=== PATIENT | male | born 1975 | race Caucasian/White ===

== ENCOUNTER 2023-10-23 00:11 | Emergency (ER) | payer OTHER | END 2023-10-23 01:26 | disposition home or self-care (01) | LOC: LL.ED 00:11 | DX: S62.307A Unspecified fracture of fifth metacarpal bone, left hand, initial encounter for closed fracture (principal); F17.210 Nicotine dependence, cigarettes, uncomplicated; J44.9 Chronic obstructive pulmonary disease, unspecified; Z88.0 Allergy status to penicillin; Z91.030 Bee allergy status; Z91.013 Allergy to seafood; W26.8XXA Contact with other sharp object(s), not elsewhere classified, initial encounter; Y93.I9 Activity, other involving external motion | CPT/HCPCS: 29125; 73130-LT; 99283 ==

== ENCOUNTER 2024-01-06 20:52 | Emergency (ER) | payer BC, MEDICAID, OTHER ==
[2024-01-06 21:23] LABS: BASOPHILS ABSOLUTE AUTO 0.02 K/uL (0.00-0.20); BASOPHILS PERCENT AUTO 0.4 % (0.0-2.0); EOSINOPHILS ABSOLUTE AUTO 0.09 K/uL (0.00-0.50); EOSINOPHILS PERCENT AUTO 1.6 % (0.0-5.0); HEMATOCRIT 47.4 % (39.0-49.0); HEMOGLOBIN 15.8 g/dL (13.1-16.8); LYMPHOCYTES ABSOLUTE AUTO 1.04 K/uL (0.50-3.50); LYMPHOCYTES PERCENT AUTO 18.2 % (10.0-50.0); MEAN CORPUSCULAR HEMOGLOBIN 29.8 pg (28.2-33.3); MEAN CORPUSCULAR HGB CONC 33.3 g/dL (31.7-36.0); MEAN CORPUSCULAR VOLUME 89.4 fL (84.0-98.0); MONOCYTES PERCENT AUTO 8.8 % (2.0-14.0); NEUTROPHILS ABSOLUTE AUTO 4.06 K/uL (1.40-7.00); PLATELET COUNT,PLT 199 K/uL (150-350); RED CELL DISTRIBUTION WIDTH 14.9 % (11.2-14.1); WHITE BLOOD CELL COUNT,WBC 5.7 K/uL (4.0-10.2)
[2024-01-06 21:36] LABS: ANION GAP 10.5 meq/L (7-15); BLOOD UREA NITROGEN,BUN 14 mg/dL (7-18); CALCIUM 8.4 mg/dL (8.5-10.1); CARBON DIOXIDE,CO2 27.5 mmol/L (21.0-32.0); CHLORIDE,CL 104 mmol/L (98-107); CREATININE 0.95 mg/dL (0.51-1.17); GLUCOSE RANDOM 126 mg/dL (70-99); SODIUM,NA 142 mmol/L (136-145)
[2024-01-06 21:38] LABS: ESTIMATED GFR 98 mL/min (>=60)
[2024-01-06 21:55] LABS: CORONAVIRUS COVID-19 NAA NEGATIVE (NEGATIVE); INFLUENZA A NAA POSITIVE (NEGATIVE); INFLUENZA B NAA NEGATIVE (NEGATIVE); RESPIRATORY SYNCYTIAL VIR NAA NEGATIVE (NEGATIVE)
[2024-01-06] MEDS: predniSONE 20 MG Tab PO ONE (22:32)
[2024-01-06] MEDS: Doxycycline Monohydrate 100 MG Cap PO ONE (22:32)
[2024-01-06] MEDS: Albuterol 6.7 GM Inhaler INH ONE (22:33)
== END 2024-01-06 22:00 | disposition home or self-care (01) ==
LOC: LL.ED 20:52
DX: J10.00 Influenza due to other identified influenza virus with unspecified type of pneumonia (principal); J44.9 Chronic obstructive pulmonary disease, unspecified; Z79.899 Other long term (current) drug therapy; F17.200 Nicotine dependence, unspecified, uncomplicated; Z91.030 Bee allergy status; Z91.041 Radiographic dye allergy status; Z91.013 Allergy to seafood; Z88.0 Allergy status to penicillin
CPT/HCPCS: 0241U; 36415; 71046; 80048; 85025; 99283; A9270-GY; J7512